=== PATIENT | male | born 1965 | race Caucasian/White ===

== ENCOUNTER 2017-02-07 23:50 | Inpatient (IN) | payer BC ==
--- NOTE | ~2017-02-07 | EEG ---
Electroencephalogram [facility] [address] [place]. [address] NAME: MOISÉS ODOM : 61 STATUS : ADM IN PAT#: [id number] AGE: 51 ADM/REG DATE : 02/08/17 MR#: [id number] REPORT SERV DATE: 02/08/17 DICTATED BY: DATE: REPORT STATUS : Draft TRANSCRIBED BY: MODL DATE: 02/08/17 CLINICAL INDICATION: Encephalopathy and memory difficulties. DESCRIPTION: This EEG was performed using 10/20 electrode placement system. During the EEG study, symmetric background activity was noted with predominant occipital rhythm of roughly 10 hertz. Photic stimulation was performed with appropriate driving response. Hyperventilation was not performed secondary to the patient's underlying medical condition and mental status. The patient achieved drowsy state during the EEG study. No focal abnormalities, seizure activity, or seizure discharge was otherwise noted. INTERPRETATION: This EEG study was obtained during the awake and drowsy state may be considered within normal limits. No focal abnormalities, seizure activity, or seizure discharge was otherwise noted. Clinical correlation is recommended. [facility]/MODL Deonte Rice MD / [id number] CC: MD Josselyn Diallo II, NP
--- NOTE | ~2017-02-07 | DS ---
Discharge Summary [facility] [address] [place]. [address] NAME: MOISÉS ODOM : 61 STATUS : DIS IN PAT#: [id number] AGE: 51 ADM/REG DATE : 02/08/17 MR#: [id number] REPORT SERV DATE: 02/11/17 DICTATED BY: BRENNAN CORTEZ II DATE: 02/10/17 REPORT STATUS : Draft TRANSCRIBED BY: MODL DATE: 02/10/17 ADMISSION DATE: 02/07/2017 DISCHARGE DATE: 02/10/2017 DISCHARGE DIAGNOSES: 1. Chronic headache with associated memory loss of uncertain etiology. 2. Depression and anxiety. 3. Hypertension. CONSULTATIONS: 1. Brennan Bland M.D. with Psychiatry. 2. Deonte Rice MD. with Neurology. BRIEF HISTORY OF PRESENT ILLNESS: The patient is a 51-year-old male with the above history, who presented to [facility] due to headache and memory loss. For a detailed history and physical examination, please see Dr. Anna's note from 02/07/2017. HOSPITAL COURSE: On admission, the patient's labs were essentially unremarkable with normal cell count and chemistry. Urine drug screen was negative. Ammonia, within normal limits. TSH 6.8. CT of the head was normal as well. Report of MRI from 01/21/2017 done as an outpatient had only shown aalg-iv-isdidujy bilateral ethmoid sinus mucosal thickening likely of an inflammatory basis in that the patient had no symptoms of sinusitis such as sinus tenderness, congestion, discharge, or any symptoms at all. He was initially placed on doxycycline, though given the absence of clinical findings, this was discontinued. He continued to have daily headaches. Neurology was consulted and essentially ran a battery of labs and studies. CT of the head was completely unremarkable. EEG was normal. Lumbar puncture showed normal glucose protein and cell count. Rheumatologic panel also unremarkable. ESR/CRP, normal. Psychiatry was consulted though evaluation revealed only mild depressive disorder NOS. Seems unlikely this is causing his symptoms. After further interview, the patient does note a family history of sleep apnea, snoring, daytime somnolence, and symptoms suggestive of possibly underlying sleep apnea. At this point, the patient is requesting to be discharged. We will prescribe tramadol for symptomatic relief, and the patient to take Tylenol as needed as well. Otherwise, Neurology is attempting a Solu-Medrol dose pack, but I have advised the patient to follow with his primary care physician to be evaluated for sleep apnea as it could explain his symptoms. Otherwise, he is stable for discharge. DISCHARGE MEDICATIONS: 1. Allopurinol 100 mg p.o. daily. 2. Aspirin 81 mg p.o. daily. 3. Wellbutrin 150 mg p.o. daily. 4. Prinzide one tablet p.o. daily. 5. Zoloft 100 mg p.o. daily. 6. Tramadol 50 mg p.o. q.6 hours p.r.n. pain. DISCHARGE INSTRUCTIONS: The patient will follow up with Dr. Deonte Rice in Neurology in 2 to Discharge Summary [address] [place]. [address] NAME: MOISÉS ODOM : 61 STATUS : DIS IN PAT#: [id number] AGE: 51 ADM/REG DATE : 02/08/17 MR#: [id number] REPORT SERV DATE: 02/11/17 DICTATED BY: BRENNAN CORTEZ II DATE: 02/10/17 REPORT STATUS : Draft TRANSCRIBED BY: JUDSON DATE: 02/10/17 3 weeks. Otherwise, follow with Josselyn Schneider NP, in one to two weeks. [facility]/JUDSON Brennan Cortez II, MD / [id number] CC: MD Josselyn Diallo II, NP
--- NOTE | ~2017-02-07 | CN ---
Consultation Report [facility] [address] [place]. [address] NAME: MOISÉS ODOM : 61 STATUS : ADM IN PAT#: [id number] AGE: 51 ADM/REG DATE : 02/08/17 MR#: [id number] REPORT SERV DATE: 02/08/17 DICTATED BY: DATE: REPORT STATUS : Draft TRANSCRIBED BY: MODL DATE: 02/08/17 NEUROLOGY CONSULTATION DATE OF CONSULTATION: 02/08/2017 REASON FOR CONSULT: Headache and memory difficulty. HISTORY OF PRESENT ILLNESS: This is a 51-year-old male who presented to [facility] as an admission from the patient's primary care physician's office secondary to headache as well as memory complaint with the patient reports the headache mostly in the bilateral frontal area, radiating to the back with a appeals nurse described as throbbing, ongoing for about a week with the patient reports some photophobia and phonophobia although no nausea vomiting was otherwise reported. The patient reports some mild improvement with the headache with Tylenol but no significant resolution of it, otherwise, no other aggravating factor or relieving factor was otherwise noted. The patient denies similar headache in the past. Also the patient occasionally does get some headache. The patient, in addition, also complains of memory difficulties ongoing for about a month with the patient complaining of recent memory difficulties but does not appear to have difficulties with long-term memory according to the patient. He has had a history of recent outpatient MRI on 01/21/2017 with reports noted to be having no recent acute process going on. The patient denies any recent travel and denies any tick bites or insect bites and denies any fevers, chills, nausea, vomiting, chest pain, or shortness of breath or any new rashes. The patient denies any new medication at the time of evaluation and reports symptom has been stable since onset. The patient also now was noted to have a in the family with the patient's mother recently in December 2016. The patient denies any stress related to it but was noted to have some depression and sad feelings with the event. PAST MEDICAL HISTORY: The patient's past medical history is significant for previous history of pneumonia, hypertension, depression, and anxiety. FAMILY HISTORY: Significant for father with brain tumor. SOCIAL HISTORY: Denies tobacco. Reports 4 times a week beer drinking but otherwise denies illicit drug usage. 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 ALLERGIES: THE PATIENT REPORTS NO KNOWN DRUG ALLERGIES. HOME MEDICATIONS: Consist of allopurinol; aspirin; Wellbutrin; lisinopril, hydrochlorothiazide; and Zoloft. REVIEW OF SYSTEMS: Negative except for those mentioned in the HPI. Consultation Report [address] [place]. [address] NAME: MOISÉS ODOM : 61 STATUS : ADM IN PAT#: [id number] AGE: 51 ADM/REG DATE : 02/08/17 MR#: [id number] REPORT SERV DATE: 02/08/17 DICTATED BY: DATE: REPORT STATUS : Draft TRANSCRIBED BY: JUDSON DATE: 02/08/17 PHYSICAL EXAMINATION: VITAL SIGNS: Overnight, the patient was noted to have vital signs with T-max of 98.6, heart rate of 70 to 75, respirations of 16 to 17, and blood pressure of 104 to 116 over 62 to 76. GENERAL: The patient is well developed, well nourished, in no acute distress. CARDIOVASCULAR: Regular rate and rhythm. No carotid bruits were otherwise auscultated. PULMONARY: Examination was clear to auscultation bilaterally. NEUROLOGICAL: Generally, the patient is alert and oriented to person, place, year, and month. Follows simple and 2-step commands. Intact registration and recall 1/3 items, but is unable to recall items even with category cues. Mild psychosocial retardation as well as depressive affect was otherwise noted. No significant aphasia was otherwise noted. No dysarthria was appreciated. Cranial nerves 2 through 12, pupils equal, round, and reactive to light. Funduscopic evaluation demonstrated no significant papilledema. Extraocular eye movement was noted to be intact with intact peripheral vision. Symmetrical facial expression and sensation. Midline tongue. Normal palatal movement. Normal hearing. The patient demonstrated some give-away weakness in bilateral upper and lower extremity strength. No myoclonus or asterixis was otherwise noted. Symmetrical sensation was reported. Deep tendon reflex was hypoattenuated and trace throughout. Normal hpcyfd-yj-wltc examination without ataxia with the patient able to ambulate without significant difficulties. Stable gait was noted. LABORATORY STUDIES: Demonstrated white blood cell count of 8.0, hemoglobin of 16.1, hematocrit of 46.7, and platelet count of 219. Chemistry panel: Sodium 137, potassium 3.8, chloride of 99, bicarb 28, BUN of 16, creatinine 1.16, glucose of 84, and calcium of 9.1. Serum ammonia level of 42 and TSH level of 6.89. Urine drug screen is otherwise negative with urinalysis demonstrated negative leukocyte esterase, negative nitrite. CT scan of the brain was reviewed. No acute process was seen. MRI report from outpatient MRI was reviewed, no acute process was commented. Also actual imaging is unavailable for review. IMPRESSION: 1. Headache. 2. Memory difficulties with the patient complaining of subjective memory difficulties mostly with recent memory for about a month as well as frontal throbbing headache for about a week. The patient does have recent in the family, noticed to have mother in December 2016. Concern for possible worsening depression versus organic neurological abnormalities. The patient does have recent outpatient MRI of the brain with no report of acute process per MRI report. We will check laboratory study as well as EEG lumbar puncture. We will start the patient on IV Depakote for headache control. RECOMMENDATIONS: 1. EEG. 2. Lumbar puncture was read by radiology with opening pressure. 3. Sedimentation rate, CRP, ammonia, TSH, free T4, procalcitonin, vitamin B12, folate, thiamine, RPR, and HIV lab in the morning. 4. CSF for protein, glucose, cell count with differential, HSV PCR, cryptococcal antigen, Gram stain, bacterial culture, and cytology. 5. Depakote 125 mg IV b.i.d. Consultation Report [address] [address] NAME: MOISÉS ODOM : 61 STATUS : ADM IN [facility]#: [id number] AGE: 51 ADM/REG DATE : 02/08/17 MR#: [id number] REPORT SERV DATE: 02/08/17 DICTATED BY: DATE: REPORT STATUS : Draft TRANSCRIBED BY: JUDSON DATE: 02/08/17 [facility]/JUDSON Deonte Rice MD / [id number] CC: MD Josselyn Diallo II, [employer] DEC[employer]PER
--- NOTE | ~2017-02-07 | CN ---
Consultation Report [facility] [address] [facility] [place]. [address] NAME: MOISÉS ODOM : 61 STATUS : ADM IN PAT#: [id number] AGE: 51 ADM/REG DATE : 02/08/17 MR#: [id number] REPORT SERV DATE: 02/09/17 DICTATED BY: TORRES SOLIMAN DATE: 02/09/17 REPORT STATUS : Draft TRANSCRIBED BY: JUDSON DATE: 02/09/17 PSYCHIATRIC CONSULTATION DATE OF CONSULTATION: 02/09/2017 I reviewed this patient's medical record. I discussed the patient's status with his nurse. HISTORY OF PRESENT ILLNESS: He was admitted with headache and a subjective feeling of talking slower than usual and having difficulty with word finding and working memory. He also reported that he was feeling pain all over his body for the past couple of months or so. He said he was started on Zoloft some time ago because of mild depression. PAST PSYCHIATRIC HISTORY: Mild depression in recent years. About one or two weeks ago, he was admitted to [facility] for a few days. His discharge plan from [facility] included followup in their partial hospitalization program. He said he had just started this program when he was admitted to this hospital. He was started on Wellbutrin while he was at [facility]. SOCIAL HISTORY: He has been and two times. He has a 16-year-old son who lives with his ex-. He works as a salesman for a security system. FAMILY HISTORY: He reports no psychiatric issues. MENTAL STATUS: He was very pleasant and cooperative in attitude. He had a ready smile. His mood seemed euthymic or perhaps mildly dysphoric. His affect was full and appropriate. His thinking was logical. He had no delusions. He had no hallucinations. He was oriented to time, place, and person. DIAGNOSIS: Depressive disorder, not otherwise specified, mild. RECOMMENDATIONS: We should continue with his current Wellbutrin and Zoloft. After discharge from this hospital, he should check back with [facility] and follow their recommendations for ongoing outpatient psychiatric care. I will sign off. BRENT/JUDSON Torres Soliman M.D. / [id number] CC: MD Josselyn Diallo II [employer]ENDER CLOTH
--- NOTE | ~2017-02-07 | HP ---
History And Physical [facility] [address] [facility] [place]. [address] NAME: MOISÉS ODOM : 61 STATUS : ADM IN PAT#: [id number] AGE: 51 ADM/REG DATE : 02/08/17 MR#: [id number] REPORT SERV DATE: 02/08/17 DICTATED BY: ROD MARLOW DATE: 02/08/17 REPORT STATUS : Draft TRANSCRIBED BY: JUDSON DATE: 02/08/17 DATE OF ADMISSION: 02/07/2017 CHIEF COMPLAINT: Headache and memory loss. HISTORY OF PRESENT ILLNESS: A 51 years old male with a past medical history of depression, anxiety, hypertension, presented with a chief complaint of headache, for which he describes as frontal to occipital over the past one to two weeks with associated fatigue, arthralgia, chills, and occasional diaphoresis. He denies any chest pain. No shortness of breath. No nausea or vomiting. Also states that he has suffered from some memory loss. He was seen by his primary care's office, who ordered an MRI of the brain as an outpatient at [facility] that showed no acute findings, no suspicious intracranial findings, but did reveal some pqkr-ut-spxwjees bilateral ethmoid mucus thickening, likely inflammatory basis on 01/21/2017. Also, the patient reported to have some mild leukocytosis via his primary care. The patient was referred to the emergency department for further workup as well for Neurology evaluation. The patient has been having some memory loss and slowing of thought. The patient denies any recent travel other than traveling down to [place] two weeks ago. Also, denies any tick contacts. Denies any new rashes and denies any fevers. The patient denies any new medications or medication changes at this time. PAST MEDICAL HISTORY: Pneumonia, hypertension, depression, and anxiety. The patient also received per PCP's counseling. PAST SURGICAL HISTORY: Left hand surgery. FAMILY HISTORY: Brain tumor, father. SOCIAL HISTORY: No tobacco. Drinks a light beer approximately four times a week. No illicit drugs. 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 ALLERGIES: NO KNOWN ALLERGIES. HOME MEDICATIONS: Allopurinol 100 mg p.o. daily, aspirin 81 mg p.o. daily, Wellbutrin XL 150 mg p.o. daily, Prinzide 08/18.5 one tab p.o. daily, Zoloft 100 mg p.o. daily, RelCof p.r.n. PHYSICAL EXAMINATION: VITAL SIGNS: Temp of 98.6, blood pressure 134/81 with a pulse of 86, respirations of 16, and saturating 97% on room air. GENERAL: The patient currently is alert and oriented x3. Speaking softly and slowly, but follows all commands and answers all questions appropriately. HEENT: Pupils equal, round, and reactive to light. Extraocular muscles are intact. Moist mucous membranes. NECK: Supple. CARDIOVASCULAR: S1, S2. Regular rate and rhythm. No murmurs, rubs, or gallops. No JVD. RESPIRATORY: Clear to auscultation bilaterally. No wheezes or crackles. No signs of tachypnea. History And Physical [address] [address] NAME: MOISÉS ODOM : 61 STATUS : ADM IN [facility]#: [id number] AGE: 51 ADM/REG DATE : 02/08/17 MR#: [id number] REPORT SERV DATE: 02/08/17 DICTATED BY: ROD MARLOW DATE: 02/08/17 REPORT STATUS : Draft TRANSCRIBED BY: JUDSON DATE: 02/08/17 ABDOMEN: Positive bowel sounds. Soft, nontender. No rebound. No fluid wave. No distention. EXTREMITIES: 2+ pulse bilaterally. No edema. NEURO: Cranial nerves 2 through 12 grossly intact. No neuro focal deficits. SKIN: No skin rashes. IMAGING: Per [facility], CT of the brain without contrast showing no evidence of acute intracranial abnormality. LABORATORY DATA: Sodium 137, potassium 3.8, chloride of 99, bicarb of 28, BUN of 16, creatinine of 1.16 with a glucose of 84, albumin of 4.1, T bili of 0.9, alkaline phosphatase of 83, ALT of 27, AST of 21. Troponin less than 0.02. TSH of 6.89. Ammonia of 42, white count of 8, hemoglobin of 16.1 with a platelet count 219. UA negative. UDS negative. ASSESSMENT AND PLAN: 1. Prolonged headache. 2. Memory loss. 3. Myalgias. 4. Debility. 5. Sinusitis. PLAN: We will repeat influenza and strep swab. Also, we will consult Neurology for further assistance. Follow up with pending labs. Empiric antibiotic for sinusitis. The patient will be admitted to my colleague, who will attend to this patient's care. NATY/JUDSON Rod Marlow M.D. / [id number] CC: Josselyn Schneider NP
[2017-02-07 18:42] LABS: BASOPHILS 0.7 %; BASOPHILS ABSOLUTE 0.06 10/3/uL (0.0-0.16); EOSINOPHILS 3.4 %; EOSINOPHILS ABSOLUTE 0.27 10/3/uL (0.0-0.53); HEMATOCRIT 46.7 % (40.0-51.0); HEMOGLOBIN 16.1 g/dL (13.6-17.8); IMMATURE GRANULOCYTES 0.4 %; IMMATURE GRANULOCYTES ABSOLUTE 0.03 10/3/uL (0.0-0.11); LYMPHOCYTES 21.6 %; LYMPHOCYTES ABSOLUTE 1.74 10/3/uL (0.67-4.30); MEAN CORPUS HGB CONC 34.5 g/dL (32.0-36.0); MEAN CORPUSCULAR HEMOGLOB 31.3 pg (26.0-34.0); MEAN CORPUSCULAR VOLUME 90.7 fL (80-100); MEAN PLATELET VOLUME 11.1 fL (9.2-13.0); MONOCYTES 10.7 %; MONOCYTES ABSOLUTE 0.86 10/3/uL (0.21-1.20); NEUTROPHILS 63.2 %; NEUTROPHILS ABSOLUTE 5.08 10/3/uL (2.02-8.40); PLATELET COUNT 219 10/3/uL (150-400); RBC DISTRIBUTION WIDTH 12.7 % (12.0-16.0); RED CELL COUNT 5.15 10/6/uL (4.7-6.1)
[2017-02-07 18:43] LABS: MANUAL DIFF NO %
[2017-02-07 18:44] LABS: ASCORBIC ACID (UR NOT ORDER) NEG (NEG); BILIRUBIN, URINE NEGATIVE (NEG); ER URINALYSIS TAT 0 Hrs 08 Mins; KETONE, URINE NEGATIVE (NEG); LEUKOCYTE ESTERASE(NOT OR NEG (NEG); NITRITE (URINE) NEG (NEG); WBC (NOT ORDERED) (RFLEX) < 1 (0-5)
[2017-02-07 18:59] LABS: A/G RATIO 0.9 (0.7-1.9); ALBUMIN 4.1 G/DL (3.5-5.0); ALKALINE PHOSPHATASE 83 U/L (45-117); BUN (BLOOD UREA NITROGEN) 16 MG/DL (6-23); CALCIUM, SERUM 9.1 MG/DL (8.5-10.4); CHLORIDE, SERUM 99 MMOL/L (96-112); CO2 (CARBON DIOXIDE) 28 MMOL/L (24-34); CREATININE 1.16 MG/DL (0.70-1.30); GFR AFRICAN AMERICAN 83 ML/MIN (>=60); GFR NON AFRICAN AMERICAN 72 ML/MIN (>=60); GLOBULIN 4.5 G/DL (2.5-4.1); GLUCOSE, SERUM 84 MG/DL (60-99); POTASSIUM, SERUM 3.8 MMOL/L (3.5-5.3); SGOT(AST) 21 U/L (5-40); SGPT(ALT) 27 U/L (5-65); SODIUM, SERUM 137 MMOL/L (135-148); TOTAL BILIRUBIN 0.9 MG/DL (0-1.2); TOTAL PROTEIN 8.6 G/DL (6.0-8.5); TROPONIN I <0.02 NG/ML (<0.05)
[2017-02-07 23:48] LABS: AMPHETAMINES (NOT ORD) NEG (NEG); BARBITURATES (NOT ORDERED NEG (NEG); BENZODIAZEPINES (NOT ORD) NEG (NEG); CANNABINOIDS (THC) NEG (NEG); COCAINE (NOT ORDERED) NEG (NEG); OPIATES NEG (NEG); PHENCYCLIDINE(PCP) NEG (NEG); TRICYCLICS NEG (NEG)
[2017-02-08 00:19] LABS: ACETAMINOPHEN LEVEL (TYLENOL) < 2.0 MCG/ML (10.0-20.0); ALCOHOL < 10 MG/DL (0); SALICYLATE < 1.7 MG/DL (-)
[2017-02-08] MEDS ORDERED: ZOL100 PO (00:50)
[2017-02-08] MEDS ORDERED: WELLXL150 PO (00:51)
[2017-02-08] MEDS ORDERED: Z100 PO (00:51)
[2017-02-08] MEDS ORDERED: PRINZIDE1 TAB PO (00:51)
[2017-02-08] MEDS ORDERED: ASAB PO (00:51)
[2017-02-08] MEDS ORDERED: [UNRECOGNIZED DRUG - OTHER] PO (00:53)
[2017-02-08 09:22] LABS: INFLUENZA A SCREEN NEGATIVE (NEGATIVE)
[2017-02-08 09:23] LABS: INFLUENZA B SCREEN NEGATIVE (NEGATIVE)
[2017-02-08 16:07] LABS: TOTAL PROTEIN, CSF 47.1 MG/DL (15-45)
[2017-02-08 16:39] LABS: CSF BASO 0 % (NO REF RANGE); CSF EOS 0 % (0-1); CSF LYMPH (NOT ORD) 66 % (28-96); CSF MONO 34 % (16-56); CSF SEGS (NOT ORD) 0 % (0-7)
[2017-02-08 16:40] LABS: CSF APPEARANCE (NOT ORD) CLEAR (CLEAR); CSF COLOR (NOT ORD) COLORLESS (COLORLESS); CSF RBC (NOT ORD) 1 MM3 (NO REFERENCE); CSF WBC (NOT ORD) 1 /uL (0-10); CSF XANTHROCHROMIA NEG (NEG)
[2017-02-09 06:15] LABS: BASOPHILS ABSOLUTE 0.05 10/3/uL (0.0-0.16); EOSINOPHILS 6.1 %; HEMATOCRIT 44.8 % (40.0-51.0); IMMATURE GRANULOCYTES 0.4 %; IMMATURE GRANULOCYTES ABSOLUTE 0.02 10/3/uL (0.0-0.11); LYMPHOCYTES 28.9 %; LYMPHOCYTES ABSOLUTE 1.43 10/3/uL (0.67-4.30); MEAN CORPUS HGB CONC 33.5 g/dL (32.0-36.0); MEAN CORPUSCULAR VOLUME 92.6 fL (80-100); MEAN PLATELET VOLUME 11.6 fL (9.2-13.0); MONOCYTES 12.9 %; MONOCYTES ABSOLUTE 0.64 10/3/uL (0.21-1.20); NEUTROPHILS 50.7 %; NEUTROPHILS ABSOLUTE 2.51 10/3/uL (2.02-8.40); PLATELET COUNT 194 10/3/uL (150-400); RBC DISTRIBUTION WIDTH 12.6 % (12.0-16.0); RED CELL COUNT 4.84 10/6/uL (4.7-6.1)
[2017-02-09 06:16] LABS: MANUAL DIFF NO %
[2017-02-09 06:53] LABS: A/G RATIO 0.8 (0.7-1.9); ALBUMIN 3.4 G/DL (3.5-5.0); ALKALINE PHOSPHATASE 73 U/L (45-117); C-REACTIVE PROTEIN 8.5 MG/L (<8.0); CALCIUM, SERUM 8.8 MG/DL (8.5-10.4); CHLORIDE, SERUM 105 MMOL/L (96-112); CO2 (CARBON DIOXIDE) 28 MMOL/L (24-34); CREATININE 1.12 MG/DL (0.70-1.30); FREE T4 1.01 NG/DL (0.76-1.46); GFR AFRICAN AMERICAN 86 ML/MIN (>=60); GFR NON AFRICAN AMERICAN 75 ML/MIN (>=60); GLOBULIN 4.2 G/DL (2.5-4.1); GLUCOSE, SERUM 95 MG/DL (60-99); POTASSIUM, SERUM 4.1 MMOL/L (3.5-5.3); SGPT(ALT) 29 U/L (5-65); SODIUM, SERUM 140 MMOL/L (135-148); TOTAL BILIRUBIN 0.6 MG/DL (0-1.2); TOTAL PROTEIN 7.6 G/DL (6.0-8.5)
[2017-02-09 06:58] LABS: BUN (BLOOD UREA NITROGEN) 12 MG/DL (6-23)
[2017-02-09 06:59] LABS: FOLATE 17.9 NG/ML (>5.2); SGOT(AST) 18 U/L (5-40)
[2017-02-09 07:36] LABS: PROCALCITONIN <0.05 ng/mL (<0.5)
[2017-02-09 07:50] LABS: SED RATE 13 MM/HR (0-15)
[2017-02-10] MEDS ORDERED: MEDROLPAK4 PO (15:16)
[2017-02-11 09:16] LABS: ANA TITER <1:40 TITER
[2017-02-11 12:47] LABS: HSV DNA TYPE 1 Not Detected (NOTDET); HSV DNA TYPE 2 Not Detected (NOTDET)
[2017-02-12 07:27] LABS: RHEUMATOID FACTOR, BODY FLUID <10 IU/mL (())
[2017-02-12 13:53] LABS: DRVVT 29.2 sec (31.8-45.7); DRVVT CONFIRM RATIO CHG ND; DRVVT MIX RATIO CHG ND
== END 2017-02-10 15:46 | disposition home or self-care (01) | DRG 103 ==
LOC: ER 23:50 → 5SO 02-08 02:58
PROVIDERS: Emergency Medicine; Hospitalist; Psychiatry & Neurology Neurology
PROC: 009U3ZX Drainage of Spinal Canal, Percutaneous Approach, Diagnostic (ICD-10-PCS; principal; 2017-02-08)
PROC: B01B1ZZ Fluoroscopy of Spinal Cord using Low Osmolar Contrast (ICD-10-PCS; 2017-02-08)
DX: R51 Headache (principal); I10 Essential (primary) hypertension; J32.9 Chronic sinusitis, unspecified; R41.3 Other amnesia; M79.1 Myalgia; R53.81 Other malaise; Z79.82 Long term (current) use of aspirin; Z79.899 Other long term (current) drug therapy; F32.9 Major depressive disorder, single episode, unspecified; F41.9 Anxiety disorder, unspecified
CPT/HCPCS: 62270; 70450; 71020; 77003; 80053; 80305; 80307; 81001; 82009; 82140; 82607; 82746; 82945; 83735; 84145; 84157; 84439; 84443; 84484; 85025; 85610; 85613; 85652; 85670; 85730; 86039; 86140; 86226; 86431; 86592; 87040; 87070; 87205; 87327; 87389; 87529; 87529-59; 87804; 87880; 88112; 89051; 93005; 95816; 99285; A9270-GY; J1885; J2930